=== PATIENT | male | born 1970 | race Caucasian/White ===

== ENCOUNTER 2021-06-20 10:54 | Emergency (ER) | payer OTHER, BC, SELFPAY ==
[2021-06-20 10:56] VITALS: BP 159/93; PULSE 76; RESP 14; TEMP 36.1; O2SAT 98; BMI 48.6
--- NOTE | 2021-06-20 11:15 | EX.ED.GENINJ ---
HPI History of Present Illness Chief Complaint: Laceration Informant: patient Onset/Context/Timing Onset: Today Mechanism/Context: Blunt Injury and Incised Current Severity: Gone Worsened by: Nothing Relieved by: Nothing Associated Symptoms Associated Symptoms: Negative for Parasthesias, Weakness, Loss of function, Inability to ambulate, Loss of consciousness and Amnesia Narrative Narrative: Patient presents with a scalp laceration that occurred today. Patient hit his head on a piece of metal. Patient states the bleeding persisted for several minutes. Patient states the bleeding stopped with pressure. Patient denies any loss of consciousness. Patient denies any paresthesias or weakness. Patient denies any visual changes. Patient denies any pain. Patient is unsure of his last tetanus. PFSH PFS Medical History no medical history no medical history Home Medications NK 06/20/21 [History Last Taken Unknown] Allergy/AdvReac Type Severity Reaction Status Date / Time No Known Allergies Allergy Verified 06/20/21 10:58 Surgical History no surgical history no surgical history Social History Smoking Status: Never smoker ROS ROS ED Constitutional Constitutional ED: Denies chills or fever(s) Eyes Eyes: Denies blurry vision or change in vision ENT ENT ED: Reports rhinorrhea; Denies sore throat Cardiovascular Cardiovascular: Denies chest pain or palpitations Respiratory/Chest Respiratory/Chest: Reports cough; Denies dyspnea Gastrointestinal Gastrointestinal: Denies nausea or vomiting Genitourinary Genitourinary ED: Denies dysuria or hematuria Musculoskeletal Musculoskeletal: Denies back pain or neck pain Integumentary Denies abscess or rash Neurologic Neurologic: Denies headache(s) or weakness Allergic/Immunologic Allergic/Immunologic ED: Denies mouth swelling or urticaria EXAM Physical Exam Const Vital Signs: 06/20/21 10:56 Temperature 97.0 F L Temperature Source Temporal Pulse Rate 76 Respiratory Rate 14 Blood Pressure 159/93 H Blood Pressure Mean 115 Pulse Ox 98 Oxygen Delivery Method Room Air Positive well nourished, well developed and obese General Appearance ED: well developed Nutritional Appearance: obese HEENT HEENT Narrative: There is a 2.5 cm V-shaped laceration over the left parietal scalp. There is mild gapping of the wound margins. There is no active bleeding. There is no bony crepitance or step-off. There are no foreign bodies noted. Extremity normal to inspection and full ROM Neuro oriented x3, CN's II-XII intact bilaterally, moves all extremities, no focal motor deficits and no sensory deficits noted Sensorium / Orientation: alert Psych mental status grossly normal PROC Procedures Lacerations Scalp: Length: 2.5 cm Depth: Sub Q Shape: Linear (V shaped) Prep: Sterile Conditions and Shure-Clens Laceration repair: Irrigated, Lidocaine with epi, Local and Wound explored Number of Sutures/Jose: 4 Suture Information: - (Jose) MDM MDM MDM Narrative Medical decision making narrative: The wound was cleaned and irrigated with copious amounts of normal saline. The wound was anesthetized with 1% lidocaine with epinephrine locally. The wound was closed with 4 jose under sterile technique. Patient tolerated the procedure well. Patient was instructed to keep the wound clean and dry. Patient was instructed to take Tylenol or ibuprofen as needed for pain. Patient was instructed to follow-up with his primary care physician or the [facility] in 7 days for wound recheck and staple removal. Patient understood and was agreeable with the plan. All questions were answered. Discharge Plan Triage Chief Complaint: Laceration ED Provider: Deshaun Mckay Dx/Rx/DC Orders Clinical Impression: Scalp laceration Instructions: ED Laceration Scalp Stitches or Jose Prescriptions: No Action NK RF: 0 Stand Alone Forms: Work Status Form Primary Care Provider: Care Physician,Angelita Primary Referrals: [facility] [NON-[facility]] - 7 Days for suture removal Disposition Disposition: Home, Self Care
[2021-06-20] MEDS: Diphth,Pertuss(Acell),Tet Vac 0.5 ML Vial IM (11:32)
[2021-06-20] MEDS: Lidocaine 1% /Epi 1:100 (20ml) 20 ML Vial INFILT (11:34)
[2021-06-20 12:12] VITALS: BP 129/88; PULSE 71; RESP 15; O2SAT 98
== END 2021-06-20 12:13 | disposition home or self-care (01) ==
LOC: ED 11:28
PROVIDERS: Emergency Provider Emergency Medicine; Visit Provider Emergency Medicine
DX: S01.01XA Laceration without foreign body of scalp, initial encounter (principal); W22.09XA Striking against other stationary object, initial encounter; E66.9 Obesity, unspecified
CPT/HCPCS: 12001; 90471; 90715; 99283

== ENCOUNTER 2022-06-26 07:39 | Emergency (ER) | payer OTHER, SELFPAY ==
[2022-06-26 07:41] VITALS: BP 172/85; PULSE 89; RESP 17; TEMP 36.8; O2SAT 96; BMI 47.3
[2022-06-26] MEDS: Lidocaine 1% (20 ml mdv) 20 ML Vial INFILT (08:38)
--- NOTE | 2022-06-26 09:18 | EDS_ITS ---
HPI History of Present Illness HPI Narrative: Patient presents with laceration to his right index finger that occurred today. Patient was at work and cut on the edge of a piece of metal. Patient states it was bleeding fairly briskly when it first happened. Patient states this has improved with pressure. Patient denies any paresthesias or weakness. Patient states nothing makes it better nothing makes it worse. Patient states his last tetanus was approximate 1 year ago. Patient denies any other injuries. Chief Complaint: Laceration Informant: patient Occured/Mechanism Mechanism/Context: Yes other see comment below Comment: Cut on a piece of metal Onset/Context/Timing Context: Sudden Onset Timing: Continuous Quality of Pain: Dull Location: Right index finger Worsened by: Nothing Relieved by: Nothing Associated Symptoms Associated Symptoms: Negative for Parasthesia, Weakness or Loss of Funtion Narrative Tetanus Immunization: <5 years PFSH PFSH Medical History no medical history no medical history Home Medications NK 06/20/21 [History Last Taken Unknown] Allergy/AdvReac Type Severity Reaction Status Date / Time No Known Allergies Allergy Verified 06/26/22 07:40 Family History (Updated 06/30/21 @ 11:14 by Sierra Cano RN) Other Diabetes Hypertension Surgical History no surgical history no surgical history Social History Smoking Status: Never smoker ROS ROS ED Constitutional Constitutional ED: Denies chills or fever(s) Eyes Eyes: Denies blurry vision or change in vision ENT ENT ED: Denies rhinorrhea or sore throat Cardiovascular Cardiovascular: Denies chest pain or palpitations Respiratory/Chest Respiratory/Chest: Denies cough or dyspnea Gastrointestinal Gastrointestinal: Denies nausea or vomiting Genitourinary Genitourinary ED: Denies dysuria or hematuria Musculoskeletal Musculoskeletal: Reports back pain; Denies neck pain Integumentary Denies abscess or rash Neurologic Neurologic: Denies headache(s) or weakness Allergic/Immunologic Allergic/Immunologic ED: Denies mouth swelling or urticaria EXAM Physical Exam Const Vital Signs: 06/26/22 07:41 Temperature 98.2 F Temperature Source Temporal Pulse Rate 89 Respiratory Rate 17 Blood Pressure 172/85 H Blood Pressure Mean 114 Pulse Ox 96 Oxygen Delivery Method Room Air Positive well nourished, well developed and obese General Appearance ED: well developed and NAD Nutritional Appearance: obese HEENT Reports moist mucous membranes Neck full ROM Extremity Extremity Narrative: There is a 2 cm full-thickness linear laceration on the radial aspect of the middle phalanx of the right index finger. There is mild gapping of the wound margins. There is no foreign body noted. There is no active bleeding noted. Strength is 5/5 in flexion extension of the MP, PIP, DIP joints. Sensation was intact to light touch in all digits. Capillary refill is less than 2 seconds in all digits. Neuro oriented x3, CN's II-XII intact bilaterally, moves all extremities, no focal motor deficits and no sensory deficits noted Sensorium / Orientation: alert Motor Exam: strength 5/5 throughout Psych mental status grossly normal MDM MDM MDM Narrative Medical decision making narrative: Treatment options were discussed with the patient. Since it is on the digit, I felt it would be best to use sutures to repair the wound instead of Dermabond. Patient is agreeable with this. The wound was cleaned and irrigated with copious amounts normal saline. The right index finger was anesthetized 1% plain lidocaine via digital block. The wound was closed with 3 simple interrupted #4- 0 nylon sutures under sterile technique. Patient tolerated the procedure well. Bacitracin dressing was applied. Patient was instructed to keep the wound clean and dry. Patient was instructed to follow-up with his primary care physician or the [facility] in 5 to 7 days. Patient understood and was agreeable with the plan. All questions were answered. Discharge Plan Triage Chief Complaint: Laceration ED Provider: Deshaun Mckay Dx/Rx/DC Orders Clinical Impression: Laceration of right index finger, Morbid obesity with BMI of 45.0-49.9, adult Instructions: ED Laceration, Hand: All Closures Prescriptions: No Action NK Stand Alone Forms: Work Status Form Primary Care Provider: Care Physician,No Primary Referrals: Care Physician,No Primary [Primary Care Provider] - [facility] [Non-Staff] - 7 Days for suture removal Disposition Disposition: Home, Self Care
[2022-06-26 09:43] VITALS: BP 148/67; PULSE 74; RESP 15; O2SAT 98
== END 2022-06-26 09:45 | disposition home or self-care (01) ==
PROVIDERS: Emergency Provider Emergency Medicine; Visit Provider Emergency Medicine
DX: S61.210A Laceration without foreign body of right index finger without damage to nail, initial encounter (principal); E66.01 Morbid (severe) obesity due to excess calories; Z68.42 Body mass index [BMI] 45.0-49.9, adult; W26.8XXA Contact with other sharp object(s), not elsewhere classified, initial encounter; Y99.0 Civilian activity done for income or pay
CPT/HCPCS: 12001; 99284